=== PATIENT | male | born 1980 | race African-American/Black ===

== ENCOUNTER 2019-03-27 22:55 | Emergency (ER) | payer OTHER ==
[~2019-03-27] VITALS: Ht 188 cm; Wt 90.1 kg
[2019-03-27 23:20] LABS: GLUCOSE,POINT OF CARE 120 MG/DL (70-110)
[2019-03-27] MEDS ORDERED: LORazepam 2 MG/ML VIAL IVP ONE (23:30)
[2019-03-27 23:38] LABS: BASOPHILS % (AUTO) 0.3 % (0.0-2.0); LYMPHOCYTES # (AUTO) 3.5 K/uL (1.0-4.8); LYMPHOCYTES % (AUTO) 33.7 % (22.0-44.0); MEAN CORPUSCULAR HGB CONC 32.6 G/dL (31.0-37.0); MEAN CORPUSCULAR VOLUME 92 fL (80-100); MONOCYTES # (AUTO) 0.8 K/uL (0.1-1.0); MONOCYTES % (AUTO) 7.4 % (2.0-9.0); NEUTROPHILS % (AUTO) 57.6 % (40.0-70.0); PLATELET COUNT (AUTO) 188 K/uL (150-450); RED CELL DISTRIBUTION WIDTH 13.9 % (11.5-14.5)
[2019-03-27 23:47] LABS: AMPHET/METH SCREEN,URINE NEGATIVE (NEGATIVE); BARBITURATE SCREEN, URINE NEGATIVE (NEGATIVE); BENZODIAZEPINES SCREEN,URINE NEGATIVE (NEGATIVE); CANNABINOID SCREEN,URINE POSITIVE (NEGATIVE); COCAINE SCREEN,URINE NEGATIVE (NEGATIVE); METHADONE SCREEN, URINE NEGATIVE (NEGATIVE); OPIATE SCREEN,URINE NEGATIVE (NEGATIVE)
[2019-03-27 23:48] LABS: PHENCYCLIDINE SCREEN,URINE POSITIVE (NEGATIVE)
[2019-03-27 23:51] LABS: APPEARANCE,URINE CLEAR (CLEAR); BILIRUBIN,URINE NEGATIVE (NEGATIVE); GLUCOSE, URINE (UA) NEGATIVE (NEGATIVE); KETONES,URINE NEGATIVE (NEGATIVE); LEUKOCYTE ESTERASE ,URINE NEGATIVE (NEGATIVE); NITRATE,URINE NEGATIVE (NEGATIVE); OCCULT BLOOD,URINE NEGATIVE (NEGATIVE); PROTEIN,URINE NEGATIVE (NEGATIVE); UROBILINOGEN,URINE 0.2 mg/dL (<=1.0)
[2019-03-27 23:59] LABS: ANION GAP 8 mmol/L (8-16); CALCIUM, TOTAL 9.4 mg/dL (8.8-10.5); CARBON DIOXIDE 30 mmol/L (22-29); CHLORIDE 106 mmol/L (98-107); CREATININE 1.35 mg/dL (0.60-1.30); GLOMERULAR FILTR. RATE CALC > 60 mL/min (>60); GLUCOSE,RANDOM 114 mg/dL (70-110); POTASSIUM 4.1 mmol/L (3.5-5.1); SODIUM SERUM 144 mmol/L (136-145); UREA NITROGEN, BLOOD 15 mg/dL (7-18)
[2019-03-28] MEDS ORDERED: LORazepam 2 MG/ML VIAL IVP ONE
[2019-03-28 00:01] LABS: TROPONIN I 0.04 ng/mL (0.00-0.05)
[2019-03-28 00:08] LABS: LACTIC ACID 3.1 mmol/L (0.4-2.0)
[2019-03-28] MEDS ORDERED: SODIUM CHLORIDE 0.9% 1,000 ML IV ONE (00:15)
[2019-03-28 00:18] LABS: ALANINE AMINOTRANSFERASE 17 U/L (12-78); ALBUMIN 3.9 g/dL (3.4-5.0); ALKALINE PHOSPHATASE 71 U/L (46-116); ASPARTATE AMINOTRANSFERASE 21 U/L (15-37); BILIRUBIN,TOTAL 0.2 mg/dL (0.1-1.0); CREATINE KINASE, TOTAL ONLY 214 U/L (39-308); TOTAL PROTEIN, SERUM 7.4 g/dL (6.4-8.2)
[2019-03-28 00:28] LABS: SALICYLATE 3.3 mg/dL (2.8-20.0)
[2019-03-28 00:32] LABS: ACETAMINOPHEN < 2 mcg/mL (10-30)
[2019-03-28] MEDS ORDERED: HydrALAZINE HCL 20 MG/ML VIAL IVP ONE (01:00)
[2019-03-28 02:25] VITALS: BP 200/104
== END 2019-03-28 03:00 | disposition left against medical advice (07) ==
LOC: EMS 23:01 → EDBD 23:01 → EMS 03-28 03:00
DX: I10 Essential (primary) hypertension (principal); F16.10 Hallucinogen abuse, uncomplicated; F12.90 Cannabis use, unspecified, uncomplicated
CPT/HCPCS: 36415; 70450; 71045; 80053; 80307; 81003; 82140; 82550; 82962; 83605; 84484; 85025; 85610; 85730; 87040; 93005; 96361; 96374; 96375; 99285; G0480; J0360; J2060; 51702; G0481

== ENCOUNTER 2019-03-28 05:18 | Inpatient (IN) | payer OTHER ==
[~2019-03-28] VITALS: Ht 193 cm; Wt 87.2 kg
[2019-03-28 05:39] LABS: GLUCOSE,POINT OF CARE 99 MG/DL (70-110)
[2019-03-28 06:43] LABS: BASOPHILS % (AUTO) 0.2 % (0.0-2.0); EOSINOPHILS % (AUTO) 0.4 % (1.0-6.0); HEMATOCRIT 46.3 % (41-53); HEMOGLOBIN 15.5 g/dL (13.5-17.5); LYMPHOCYTES # (AUTO) 1.6 K/uL (1.0-4.8); LYMPHOCYTES % (AUTO) 15.5 % (22.0-44.0); MEAN CORPUSCULAR HEMOGLOBIN 30.4 pg (26.0-34.0); MEAN CORPUSCULAR HGB CONC 33.4 G/dL (31.0-37.0); MEAN CORPUSCULAR VOLUME 91 fL (80-100); MONOCYTES # (AUTO) 0.8 K/uL (0.1-1.0); MONOCYTES % (AUTO) 7.1 % (2.0-9.0); NEUTROPHILS # (AUTO) 8.1 K/uL (1.8-7.7); NEUTROPHILS % (AUTO) 76.8 % (40.0-70.0); PLATELET COUNT (AUTO) 173 K/uL (150-450); RED BLOOD CELL COUNT(AUTO) 5.08 MIL/uL (4.50-5.90); RED CELL DISTRIBUTION WIDTH 13.9 % (11.5-14.5)
[2019-03-28] MEDS: NITROPRUSSIDE SODIUM 50 MG in DEXTROSE 5%-WATER 248 ML IV PRN ×2 (06:49→20:50)
[2019-03-28 06:52] LABS: ANION GAP 14 mmol/L (8-16); CALCIUM, TOTAL 9.3 mg/dL (8.8-10.5); CARBON DIOXIDE 27 mmol/L (22-29); CHLORIDE 103 mmol/L (98-107); CREATININE 1.19 mg/dL (0.60-1.30); GLOMERULAR FILTR. RATE CALC > 60 mL/min (>60); GLUCOSE,RANDOM 94 mg/dL (70-110); POTASSIUM 3.2 mmol/L (3.5-5.1); SODIUM SERUM 144 mmol/L (136-145); UREA NITROGEN, BLOOD 14 mg/dL (7-18)
[2019-03-28 06:54] LABS: AMPHET/METH SCREEN,URINE NEGATIVE (NEGATIVE); BARBITURATE SCREEN, URINE NEGATIVE (NEGATIVE); BENZODIAZEPINES SCREEN,URINE NEGATIVE (NEGATIVE); CANNABINOID SCREEN,URINE POSITIVE (NEGATIVE); COCAINE SCREEN,URINE NEGATIVE (NEGATIVE); METHADONE SCREEN, URINE NEGATIVE (NEGATIVE); OPIATE SCREEN,URINE NEGATIVE (NEGATIVE)
[2019-03-28 06:55] LABS: PHENCYCLIDINE SCREEN,URINE POSITIVE (NEGATIVE)
[2019-03-28 06:58] LABS: ALANINE AMINOTRANSFERASE 18 U/L (12-78); ALKALINE PHOSPHATASE 68 U/L (46-116); ASPARTATE AMINOTRANSFERASE 23 U/L (15-37); BILIRUBIN,TOTAL 0.4 mg/dL (0.1-1.0); TOTAL PROTEIN, SERUM 7.7 g/dL (6.4-8.2)
[2019-03-28] MEDS ORDERED: METOPROLOL TARTRATE 5 MG/5 ML VIAL IVP ONE (07:45)
[2019-03-28 16:44] LABS: GLUCOSE,POINT OF CARE 107 MG/DL (70-110)
[2019-03-28 18:09] LABS: PROTHROMBIN TIME 10.9 SEC (9.4-11.6)
[2019-03-28 20:20] VITALS: BP 176/85
[2019-03-28] MEDS ORDERED: ACETAMINOPHEN 325 MG TABLET PO PRN (20:45)
[2019-03-28] MEDS ORDERED: MAGNESIUM HYDROXIDE SUSPENSION 30 ML UDCUP PO PRN (20:45)
[2019-03-28] MEDS ORDERED: ONDANSETRON HCL 4 MG/2 ML VIAL IVP PRN (20:45)
[2019-03-28] MEDS ORDERED: OxyCODONE HCL/ACETAMINOPHEN 5-325 MG TABLET PO PRN ×2 (20:45)
[2019-03-28] MEDS ORDERED: 0.9% SODIUM CHLORIDE 10 ML SYRINGE IVP PRN (20:45)
[2019-03-28] MEDS: DOCUSATE SODIUM 100 MG CAPSULE PO SCH (21:00)
[2019-03-28] MEDS ORDERED: NITROPRUSSIDE SODIUM 50 MG in DEXTROSE 5%-WATER 248 ML IV PRN (21:20)
[2019-03-28] MEDS ORDERED: POTASSIUM CHLORIDE 20 MEQ ER TABLET PO PRN (21:30)
[2019-03-28] MEDS ORDERED: SODIUM CHLORIDE 0.9% 500 ML IV ONE (21:45)
[2019-03-28] MEDS: FAMOTIDINE 10 MG/ML 2 ML VIAL IVP SCH (22:30)
[2019-03-28] MEDS: POTASSIUM CHL 10 MEQ/WATER 50 ML IV PRN (22:31)
[2019-03-28] MEDS: HydrALAZINE HCL 20 MG/ML VIAL IVP PRN (23:25)
[2019-03-29] VITALS: BP 157/94
[2019-03-29] MEDS: POTASSIUM CHL 10 MEQ/WATER 50 ML IV PRN ×2 (00:24→01:58)
[2019-03-29] MEDS: HydrALAZINE HCL 20 MG/ML VIAL IVP PRN ×3 (01:15→19:03)
[2019-03-29] MEDS ORDERED: HydrALAZINE HCL 25 MG TABLET PO PRN (07:45)
[2019-03-29] MEDS: AmLODIPine BESYLATE 5 MG TABLET PO SCH (08:18)
[2019-03-29] MEDS: FAMOTIDINE 10 MG/ML 2 ML VIAL IVP SCH (09:00)
[2019-03-29] MEDS: DOCUSATE SODIUM 100 MG CAPSULE PO SCH ×2 (09:00→21:16)
[2019-03-29] MEDS: RisperiDONE 1 MG TABLET PO SCH ×2 (10:00→21:16)
[2019-03-29] MEDS ORDERED: HALOPERIDOL LACTATE 5 MG/ML VIAL IM SCH (10:45)
[2019-03-29] MEDS ORDERED: LORazepam 2 MG/ML VIAL IM ONE (10:45)
[2019-03-29] MEDS ORDERED: HALOPERIDOL LACTATE 5 MG/ML VIAL IM ONE ×2 (11:00)
[2019-03-29 13:00] VITALS: BP 205/105
[2019-03-29] MEDS ORDERED: LABETALOL HCL 200 MG in DEXTROSE 5%-WATER 160 ML IV PRN (13:39)
[2019-03-29 14:00] VITALS: BP 184/127
[2019-03-29] MEDS ORDERED: CloNIDine 0.2 MG/24 HOUR PATCH TD SCH (16:00)
[2019-03-29] MEDS ORDERED: CloNIDine 0.1 MG/24 HOUR PATCH TD PRN (16:30)
[2019-03-30] VITALS (7 sets, daily range): BP systolic 136–172; BP diastolic 82–94
[2019-03-30] MEDS: AmLODIPine BESYLATE 5 MG TABLET PO SCH (08:44)
[2019-03-30] MEDS: RisperiDONE 1 MG TABLET PO SCH (08:45)
[2019-03-30] MEDS: FAMOTIDINE 10 MG/ML 2 ML VIAL IVP SCH (08:45)
[2019-03-30] MEDS: DOCUSATE SODIUM 100 MG CAPSULE PO SCH ×2 (08:45→20:58)
[2019-03-30] MEDS: HydrALAZINE HCL 20 MG/ML VIAL IVP PRN (15:53)
[2019-03-30] MEDS: RisperiDONE 0.5 MG TABLET PO SCH (20:59)
[2019-03-31 00:22] VITALS: BP 154/93
[2019-03-31 04:08] VITALS: BP 148/93
[2019-03-31 07:39] VITALS: BP 160/93
[2019-03-31] MEDS: DOCUSATE SODIUM 100 MG CAPSULE PO SCH (08:30)
[2019-03-31] MEDS: FAMOTIDINE 10 MG/ML 2 ML VIAL IVP SCH (08:30)
[2019-03-31] MEDS: RisperiDONE 0.5 MG TABLET PO SCH (08:31)
[2019-03-31] MEDS: AmLODIPine BESYLATE 5 MG TABLET PO SCH (08:31)
[2019-03-31] MEDS ORDERED: BuPROPion HCL XL 150 MG ER TABLET PO SCH (09:00)
[2019-03-31 11:30] VITALS: BP 144/87
[2019-04-07] MEDS ORDERED: CloNIDine 0.3 MG/24 HOUR PATCH TD SCH (09:00)
== END 2019-03-31 13:45 | disposition home or self-care (01) | DRG 812 ==
LOC: EMS 05:18 → ICU 18:41 → 5S 03-30 01:17
PROVIDERS: ADMIT Internal Medicine; ATTEND Internal Medicine
DX: T40.991A Poisoning by other psychodysleptics [hallucinogens], accidental (unintentional), initial encounter (principal); G92 Toxic encephalopathy; I67.4 Hypertensive encephalopathy; I16.1 Hypertensive emergency; F12.10 Cannabis abuse, uncomplicated; F17.200 Nicotine dependence, unspecified, uncomplicated; F29 Unspecified psychosis not due to a substance or known physiological condition; F16.10 Hallucinogen abuse, uncomplicated; F41.9 Anxiety disorder, unspecified; I10 Essential (primary) hypertension; Z59.0 Homelessness; Z91.19 Patient's noncompliance with other medical treatment and regimen; Z78.1 Physical restraint status; Y92.89 Other specified places as the place of occurrence of the external cause
CPT/HCPCS: 51701; 87081; 93005; 96374; G0378; J0360; J1630; J2060; J3480; J3490; J7040; J7060

== ENCOUNTER 2019-05-13 22:27 | Emergency (ER) | payer OTHER ==
[~2019-05-13] VITALS: Ht 190.5 cm; Wt 110.0 kg
[2019-05-13 23:15] VITALS: BP 190/107
[2019-05-13] MEDS ORDERED: SODIUM CHLORIDE 0.9% 1,000 ML IV ONE (23:30)
[2019-05-13 23:37] LABS: BASOPHILS % (AUTO) 0.3 % (0.0-2.0); EOSINOPHILS % (AUTO) 1.2 % (1.0-6.0); HEMATOCRIT 42.3 % (41-53); LYMPHOCYTES # (AUTO) 1.9 K/uL (1.0-4.8); LYMPHOCYTES % (AUTO) 22.5 % (22.0-44.0); MEAN CORPUSCULAR HEMOGLOBIN 30.5 pg (26.0-34.0); MEAN CORPUSCULAR HGB CONC 33.1 G/dL (31.0-37.0); MEAN CORPUSCULAR VOLUME 92 fL (80-100); MONOCYTES # (AUTO) 0.8 K/uL (0.1-1.0); MONOCYTES % (AUTO) 8.7 % (2.0-9.0); NEUTROPHILS # (AUTO) 5.8 K/uL (1.8-7.7); NEUTROPHILS % (AUTO) 67.3 % (40.0-70.0); PLATELET COUNT (AUTO) 162 K/uL (150-450); RED BLOOD CELL COUNT(AUTO) 4.59 MIL/uL (4.50-5.90); RED CELL DISTRIBUTION WIDTH 14.2 % (11.5-14.5)
[2019-05-13 23:44] LABS: ANION GAP 8 mmol/L (8-16); CALCIUM, TOTAL 8.7 mg/dL (8.8-10.5); CARBON DIOXIDE 28 mmol/L (22-29); CHLORIDE 106 mmol/L (98-107); CREATININE 1.32 mg/dL (0.60-1.30); GLOMERULAR FILTR. RATE CALC > 60 mL/min (>60); GLUCOSE,RANDOM 109 mg/dL (70-110); POTASSIUM 3.6 mmol/L (3.5-5.1); SODIUM SERUM 142 mmol/L (136-145); UREA NITROGEN, BLOOD 18 mg/dL (7-18)
[2019-05-13 23:49] LABS: ALANINE AMINOTRANSFERASE 30 U/L (12-78); ALBUMIN 3.6 g/dL (3.4-5.0); ALKALINE PHOSPHATASE 76 U/L (46-116); ASPARTATE AMINOTRANSFERASE 23 U/L (15-37); BILIRUBIN,TOTAL 0.2 mg/dL (0.1-1.0); TOTAL PROTEIN, SERUM 6.6 g/dL (6.4-8.2)
== END 2019-05-14 00:23 | disposition left against medical advice (07) ==
LOC: EMS 22:28
DX: R41.0 Disorientation, unspecified (principal); F17.210 Nicotine dependence, cigarettes, uncomplicated; F12.90 Cannabis use, unspecified, uncomplicated; F13.10 Sedative, hypnotic or anxiolytic abuse, uncomplicated
CPT/HCPCS: 36415; 80053; 85025; 99283; 99406; G0480